=== PATIENT | female | born 2000 | race Caucasian/White ===

== ENCOUNTER 2023-12-07 08:29 | Inpatient (IN) ==
[2023-12-07] MEDS: Dinoprostone 10 MG VAG.SUPP VAGINAL ONE (09:43)
[2023-12-07 11:21] LABS: Urine Benzodiazepine Screen None Detected (None Detect); Urine Cannabinoids Screen None Detected (None Detect); Urine Opiates Screen None Detected (None Detect)
[2023-12-08] MEDS: Lactated Ringers 1000 ml BAG 1,000 ML IV ONE (04:30)
[2023-12-08 04:58] LABS: ABS Basophils 0.1 10^3/uL (0.0-0.1); ABS Eosinophils 0.4 10^3/uL (0.0-0.5); ABS Lymphocytes 3.9 10^3/uL (1.0-4.8); ABS Monocytes 0.8 10^3/uL (0.0-0.9); ABS Neutrophils 8.4 10^3/uL (1.5-7.6); ABS Nucleated RBC 0.02 10^3/ul; Eosinophil % 2.8 %; Hemoglobin 12.4 g/dL (11.5-14.3); Lymphocyte % 28.9 %; Mean Corpuscular Hemoglobin 31.3 pg (27-33); Mean Corpuscular Hgb Conc 34.4 g/dL (31-36); Nucleated Red Blood Cells % 0.2 %/100WBC (0.0-0.8); Platelet Count 388 10^3/uL (150-450); Red Blood Count 3.96 10^6/uL (3.63-4.92); Red Cell Distribution Width 14.4 % (12-17); White Blood Count 13.5 10^3/uL (3.8-11.8)
[2023-12-08] MEDS: Oxytocin in LR 20,000 MILLI.UNIT/1,000 ML BAG IV SCH (10:49)
[2023-12-08] MEDS: Lactated Ringers 1000 ml BAG 1,000 ML IV SCH (18:37)
[2023-12-08] MEDS ORDERED: Ondansetron 4 mg VIAL 2 MG/ML 2 ml VIAL IV PRN (20:10)
[2023-12-09] MEDS: Oxytocin in LR 20,000 MILLI.UNIT/1,000 ML BAG IV SCH (04:59)
[2023-12-09] MEDS: Lidocaine 2% JELLY 6 ML Topical TOPICAL ONE (05:05)
[2023-12-09] MEDS: Lidocaine 1% VIAL 10 MG/ML 30 ML VIAL INJ PRN (05:15)
[2023-12-09] MEDS ORDERED: Witch Hazel PAD JAR TOPICAL PRN (05:47)
[2023-12-09] MEDS ORDERED: Dibucaine 1% OINT 28.35 GM TUBE PR PRN (05:47)
[2023-12-09] MEDS ORDERED: Glycerin ADULT 2.4 gm SUPP PR PRN (05:47)
[2023-12-09] MEDS ORDERED: Lactated Ringers 1000 ml BAG 1,000 ML IV SCH (06:00)
[2023-12-09] MEDS: Dinoprostone 10 MG VAG.SUPP VAGINAL ONE (19:30)
[2023-12-09] MEDS: Lactated Ringers 1000 ml BAG 1,000 ML IV SCH ×2 (19:30)
[2023-12-10 08:04] LABS: ABS Eosinophils 0.2 10^3/uL (0.0-0.5); ABS Lymphocytes 3.6 10^3/uL (1.0-4.8); ABS Monocytes 0.6 10^3/uL (0.0-0.9); ABS Neutrophils 9.6 10^3/uL (1.5-7.6); ABS Nucleated RBC 0.01 10^3/ul; Eosinophil % 1.4 %; Hematocrit 32.7 % (35-45); Hemoglobin 10.7 g/dL (11.5-14.3); Lymphocyte % 25.5 %; Mean Corpuscular Hemoglobin 30.6 pg (27-33); Mean Corpuscular Hgb Conc 32.9 g/dL (31-36); Mean Corpuscular Volume 93.1 fL (80-97); Platelet Count 313 10^3/uL (150-450); Red Blood Count 3.51 10^6/uL (3.63-4.92); Red Cell Distribution Width 14.5 % (12-17); White Blood Count 14.1 10^3/uL (3.8-11.8)
[2023-12-10 16:08] VITALS: BP 105/62
== END 2023-12-10 17:25 | disposition home or self-care (01) | DRG 807 ==
LOC: MCHOBOUT 08:29 → MCHOB 08:51
PROVIDERS: ADMIT Midwife; ATTEND Advanced Practice Midwife